=== PATIENT | female | born 1990 | race Caucasian/White ===

== ENCOUNTER 2016-05-22 08:02 | Emergency (ER) | payer OTHER ==
[~2016-05-22] VITALS: Ht 170.2 cm; Wt 49.9 kg
[~2016-05-22 08:02] MED LIST: BACTRIM DS TAB1 EACH PO; IBUPROFEN 600600 M1 PO; PEPCID20 MG PO; PHENERGAN 25 MG25 M1 PO; PREDNISONE 20 M20 MG PO; ZOFRAN ODT4 MG PO; [UNRECOGNIZED DRUG - OTHER] PO
[2016-05-22] MEDS ORDERED: GUAIFEN-CODEIN120 ML PO (09:15)
[2016-05-22] MEDS ORDERED: TESSALON PERLE100 MG PO (09:15)
[2016-05-22] MEDS ORDERED: VENTOLIN HFA 1818 GM INH (09:21)
[2016-05-22 09:26] VITALS: BP 122/76
== END 2016-05-22 09:27 | disposition home or self-care (01) ==
LOC: ER 08:02
DX: J06.9 Acute upper respiratory infection, unspecified (principal); J45.909 Unspecified asthma, uncomplicated; F17.210 Nicotine dependence, cigarettes, uncomplicated

== ENCOUNTER 2016-05-28 12:33 | Emergency (ER) | payer OTHER ==
[~2016-05-28] VITALS: Ht 170.2 cm; Wt 49.9 kg
[~2016-05-28 12:33] MED LIST changes: +GUAIFEN-CODEIN120 ML PO; +TESSALON PERLE100 MG PO; +VENTOLIN HFA 1818 GM INH
[2016-05-28 12:34] VITALS: BP 118/70
[2016-05-28 12:48] LABS: URINE BILIRUBIN NEGATIVE (Negative); URINE BLOOD NEGATIVE (Negative); URINE COLOR YELLOW; URINE GLUCOSE-RANDOM* NEGATIVE (Negative); URINE KETONES NEGATIVE (Negative); URINE LEUKOCYTES-REFLEX NEGATIVE (Negative); URINE PROTEIN (DIPSTICK) NEGATIVE (Negative); URINE SPECIFIC GRAVITY 1.015 (1.003-1.035)
[2016-05-28] MEDS ORDERED: TRINATE TABLET1 TAB PO (12:55)
[2016-05-28] MEDS ORDERED: ZOFRAN ODT4 MG PO (13:00)
== END 2016-05-28 13:21 ==
LOC: ER 12:33
PROVIDERS: Physician Assistant
DX: O21.9 Vomiting of pregnancy, unspecified (principal); Z3A.00 Weeks of gestation of pregnancy not specified; O99.519 Diseases of the respiratory system complicating pregnancy, unspecified trimester; J45.909 Unspecified asthma, uncomplicated; F17.210 Nicotine dependence, cigarettes, uncomplicated

== ENCOUNTER 2016-06-12 11:23 | Emergency (ER) | payer OTHER ==
[~2016-06-12] VITALS: Ht 170.2 cm; Wt 49.9 kg
[~2016-06-12 11:23] MED LIST changes: +TRINATE TABLET1 TAB PO
[2016-06-12 12:14] LABS: HEMATOCRIT 42.7 % (37.0-47.0); HEMOGLOBIN 14.9 gm/dL (12.0-15.0); MCH 32.6 pg (26.0-34.0); MCHC 34.8 g/dL (28.0-37.0); MCV 93.7 fL (80.0-100.0); RBC 4.56 mil/uL (4.20-5.00); RDW 12.2 % (10.5-14.5)
[2016-06-12 12:31] LABS: CREATININE 0.6 mg/dL (0.6-1.0); POTASSIUM 3.7 mmol/L (3.5-5.1)
[2016-06-12 12:35] LABS: TOTAL BILIRUBIN 0.8 mg/dL (<0.1-1.0); TOTAL PROTEIN 7.6 g/dL (6.4-8.2)
[2016-06-12 13:04] LABS: URINE BILIRUBIN NEGATIVE (Negative); URINE BLOOD NEGATIVE (Negative); URINE COLOR YELLOW; URINE GLUCOSE-RANDOM* NEGATIVE (Negative); URINE KETONES NEGATIVE (Negative); URINE NITRITE NEGATIVE (Negative); URINE PROTEIN (DIPSTICK) NEGATIVE (Negative)
[2016-06-12] MEDS ORDERED: PHENERGAN 25 MG25 M1 PO (13:36)
[2016-06-12 14:05] VITALS: BP 100/76
== END 2016-06-12 14:05 | disposition home or self-care (01) ==
LOC: ER 11:23
PROVIDERS: Physician Assistant
DX: O21.9 Vomiting of pregnancy, unspecified (principal); J45.909 Unspecified asthma, uncomplicated; F17.210 Nicotine dependence, cigarettes, uncomplicated

== ENCOUNTER 2016-10-30 21:00 | Emergency (ER) | payer OTHER ==
[~2016-10-30] VITALS: Ht 170.2 cm; Wt 60.8 kg
[2016-10-30 21:35] LABS: URINE BILIRUBIN NEGATIVE (Negative); URINE BLOOD TRACE (Negative); URINE COLOR YELLOW; URINE GLUCOSE-RANDOM* NEGATIVE (Negative); URINE KETONES NEGATIVE (Negative); URINE NITRITE NEGATIVE (Negative); URINE PROTEIN (DIPSTICK) NEGATIVE (Negative); URINE SPECIFIC GRAVITY 1.025 (1.003-1.035)
[2016-10-30 21:41] LABS: HEMATOCRIT 37.7 % (37.0-47.0); HEMOGLOBIN 13.3 gm/dL (12.0-15.0); MCH 33.7 pg (26.0-34.0); MCHC 35.3 g/dL (28.0-37.0); MCV 95.4 fL (80.0-100.0); PLATELET COUNT 224 thou/uL (150-400); RBC 3.95 mil/uL (4.20-5.00); WBC 13.7 thou/uL (4.0-11.0)
[2016-10-30 21:44] LABS: MANUAL DIFF YES
[2016-10-30 22:03] LABS: ANION GAP 9 mmol/L (7-16); BUN 6 mg/dL (7-18); CALCIUM 8.8 mg/dL (8.5-10.1); CHLORIDE 107 mmol/L (98-107); CO2 20 mmol/L (21-32); CREATININE 0.6 mg/dL (0.6-1.0); GLUCOSE 81 mg/dL (74-106); POTASSIUM 3.1 mmol/L (3.5-5.1); SODIUM 136 mmol/L (136-145)
[2016-10-30 22:09] LABS: ALKALINE PHOSPHATASE 66 U/L (46-116); DIRECT BILIRUBIN < 0.1 mg/dL (<0.1-0.3); SGOT 13 U/L (15-37); SGPT 17 U/L (30-65); TOTAL BILIRUBIN 0.4 mg/dL (<0.1-1.0); TOTAL PROTEIN 6.7 g/dL (6.4-8.2)
[2016-10-30 22:09] LABS: ABSOLUTE NEUTROPHILS 10.3 thou/uL (1.4-8.2); TOTAL CELL COUNT 100
[2016-10-30 22:10] LABS: ANISOCYTOSIS 1+
[2016-10-30] MEDS ORDERED: PROAIR HFA8.5 GM INH (22:11)
[2016-10-30 22:33] VITALS: BP 134/66
== END 2016-10-30 22:35 | disposition home or self-care (01) ==
LOC: ER 21:00
PROVIDERS: Emergency Medicine
DX: O99.512 Diseases of the respiratory system complicating pregnancy, second trimester (principal); J06.9 Acute upper respiratory infection, unspecified; O21.1 Hyperemesis gravidarum with metabolic disturbance; J45.909 Unspecified asthma, uncomplicated; F17.210 Nicotine dependence, cigarettes, uncomplicated; Z3A.26 26 weeks gestation of pregnancy